=== PATIENT | female | born 1985 | race Caucasian/White ===

== ENCOUNTER 2020-09-04 07:23 | Day surgery (SDC) | payer BC ==
[2020-08-30 14:36] LABS: Hemoglobin 13.7 g/dL (12.0-15.5); Mean Corpuscular HGB CONC 32.7 g/dL (32.0-36.0); Mean Corpuscular Hemoglobin 29.3 pg (27.0-33.0); Mean Corpuscular Volume 89.5 fl (81.6-98.3); Platelet Count 250 10x3/uL (150-450); RBC Distribution Width 13.1 % (11.5-14.5); Red Blood Cell (RBC) Count 4.68 10x6/uL (3.90-5.03); White Blood Cell (WBC) Count 6.4 10x3/uL (3.5-10.5)
[2020-08-30 14:44] LABS: BHCG - Serum Negative (NEGATIVE); Pregs Control Background? CLEAR/WHITE (CLR/WHITE); Pregs Control Bar Appear? YES (CONTROL BAR)
[2020-08-30 23:37] LABS: SARS-CoV-2 PCR by NAA Not Detected (NotDetected)
[2020-09-03 14:37] VITALS: BMI 39.2
[2020-09-04] MEDS ORDERED: Lidocaine 1% MPF 2 ML VIAL ONE (07:36)
[2020-09-04] MEDS ORDERED: Gabapentin 300 MG CAP ONE (07:36)
[2020-09-04] MEDS ORDERED: Famotidine/PF 20 mg/2ml Vial ONE (07:37)
[2020-09-04] MEDS ORDERED: CeleCOXIB 100 MG CAP ONE (07:37)
[2020-09-04] MEDS ORDERED: Midazolam HCl 2 mg/2 ml Vial ONE (09:35)
[2020-09-04] MEDS ORDERED: Rocuronium Bromide 10 MG/ML (10ML VIAL) ONE (09:35)
[2020-09-04] MEDS ORDERED: Dexamethasone 4 mg/ml Vial ONE (09:35)
[2020-09-04] MEDS ORDERED: PROPOFOL 20 ML ONE (09:35)
[2020-09-04] MEDS ORDERED: Lidocaine 1% PF 5 ML VIAL ONE (09:35)
[2020-09-04] MEDS ORDERED: Metoclopramide HCl 10 MG/2 ML VIAL ONE (09:35)
[2020-09-04] MEDS ORDERED: Ketorolac Tromethamine 30 MG/ML VIAL ONE (09:35)
[2020-09-04] MEDS ORDERED: Ondansetron PF 4 MG/2 ML Vial ONE (09:35)
[2020-09-04] MEDS ORDERED: Fentanyl 100 MCG/2 ML VIAL ONE ×2 (09:35→11:43)
[2020-09-04] MEDS ORDERED: Bupivacaine PF 0.5% 30 ML VIAL ONE (09:38)
[2020-09-04] MEDS ORDERED: Ropivacaine 0.2% 550 ML 750 ML NERVE BLCK SCH (10:00)
[2020-09-04] MEDS ORDERED: Glycopyrrolate 0.2 MG/ML 5 ML SYRINGE ONE (11:42)
== END 2020-09-04 16:25 | disposition home or self-care (01) ==
LOC: CSHSDC 07:23
PROVIDERS: ATTEND Obstetrics & Gynecology
PROC: 0UT74ZZ Resection of Bilateral Fallopian Tubes, Percutaneous Endoscopic Approach (ICD-10-PCS; principal; 2020-09-04)
PROC: 0UT24ZZ Resection of Bilateral Ovaries, Percutaneous Endoscopic Approach (ICD-10-PCS; principal; 2020-09-04)
PROC: 0UT94ZZ Resection of Uterus, Percutaneous Endoscopic Approach (ICD-10-PCS; principal; 2020-09-04)
DX: N72 Inflammatory disease of cervix uteri (principal); N73.6 Female pelvic peritoneal adhesions (postinfective); I10 Essential (primary) hypertension; E66.01 Morbid (severe) obesity due to excess calories; Z68.39 Body mass index [BMI] 39.0-39.9, adult; Z85.3 Personal history of malignant neoplasm of breast; Z79.811 Long term (current) use of aromatase inhibitors; Z79.899 Other long term (current) drug therapy; Z20.822 Contact with and (suspected) exposure to COVID-19
CPT/HCPCS: 36415; 84703; 85027; 86850; 86900; 86901; 87635; 88307; A4306; J0690; J1100; J1885; J2250; J2405; J2704; J2765; J2795; J3010; S0020; S0028; U0003; U0005